=== PATIENT | male | born 1955 | race Caucasian/White ===

== ENCOUNTER 2020-08-18 13:48 | Emergency (ER) | payer OTHER, SELFPAY ==
[2020-08-18 14:00] VITALS: BP 150/73; PULSE 68; RESP 16; TEMP 36.2; O2SAT 98
--- NOTE | 2020-08-18 14:01 | ED.SKABFB ---
HPI - Skin/Abscess/Foreign Bdy General Chief complaint: Skin/Abscess/Foreign Body Stated complaint: RASH Time Seen by Provider: 08/18/20 14:02 Source: patient and RN notes reviewed Mode of arrival: ambulatory Limitations: no limitations History of Present Illness HPI narrative: 64-year-old male presents concern for pain and rash to the left-sided neck and shoulder area. Reports pain started earlier this week, rash appeared later. Reports he got a prescription for naproxen from his doctor which has not been helping. He also reports mild malaise. Denies fever MD complaint: rash Related Data Home Medications Medication Instructions Recorded Confirmed amiodarone 08/18/20 apixaban [Eliquis] mg 08/18/20 atorvastatin 08/18/20 carvedilol 08/18/20 insulin detemir U-100 [Levemir SUBCUT 08/18/20 U-100 Insulin] insulin glargine [Lantus U-100 SUBCUT 08/18/20 Insulin] linagliptin [Tradjenta] mg 08/18/20 lisinopril 08/18/20 metformin mg PO 08/18/20 naproxen 08/18/20 pantoprazole PO 08/18/20 ranolazine [Ranexa] mg PO 08/18/20 sertraline mg 08/18/20 spironolactone 08/18/20 Allergies Allergy/AdvReac Type Severity Reaction Status Date / Time CYCLOBENZAPRINE HCL Allergy Severe THROAT Uncoded 06/04/12 09:56 SWELLING Review of Systems Review of Systems: Narrative: CONSTITUTIONAL: Denies malaise, chills, sweats, or fever. EYES: Denies visual changes, redness, or discharge. ENT: Denies rhinorrhea, congestion, sinus pain, otalgia or sore throat. CARDIOVASCULAR: Denies chest pain, palpitations, or edema. RESPIRATORY: Denies cough or dyspnea. GASTROINTESTINAL: Denies abdominal pain, vomiting, diarrhea. Reports nausea SKIN: Reports rash on his left neck and shoulder area MUSCULOSKELETAL: Reports left-sided neck and shoulder pain NEUROLOGIC: Denies numbness, weakness, or headache. All systems reviewed & are unremarkable except as noted in HPI and below PMFSH Comments At time of signature, agree with nursing past medical, surgical, social and family history. There is no relevant family history pertinent to the presenting complaint Exam Narrative: Exam Narrative: GENERAL: Well-appearing, well-nourished, and in no acute distress. HEAD: Normocephalic, atraumatic. EYES: PERRLA, conjunctivae clear ENT: Nares clear. Mucous membranes moist. NECK: Supple. No lymphadenopathy. No jugular venous distension CHEST: No respiratory distress. Speaks in full sentences. HEART: Regular rate and rhythm. EXTREMITIES: Grossly normal range of motion. No edema. SKIN: Warm, dry. Zosteriform rash noted to the left-sided neck extending to the left upper chest NEURO: Alert and oriented x3. PSYCH: Normal mood and affect Course Course Emergency Course: Patient is aware of diagnosis, understands and agrees to treatment plan. Anticipatory guidance given. Patient agrees to follow-up as directed and is aware of reasons to seek care at the emergency department. Portions of this record may have been created with voice recognition software Vital Signs Vital signs: Vital Signs Temperature 97.2 F L 08/18/20 14:00 Pulse Rate 68 08/18/20 14:00 Respiratory Rate 16 08/18/20 14:00 Blood Pressure 150/73 H 08/18/20 14:00 Pulse Oximetry 98 08/18/20 14:00 Temperature 97.2 F L 08/18/20 14:00 Pulse Rate 68 08/18/20 14:00 Respiratory Rate 16 08/18/20 14:00 Blood Pressure 150/73 H 08/18/20 14:00 Pulse Oximetry 98 08/18/20 14:00 Reviewed. Patient has history of hypertension MDM - Skin/Abscess/Foreign Bdy MDM Narrative Medical decision making narrative: Does not appear at this time to be erythema multiforme, bullous, SJS, TEN; no evidence at this time to suggest RMSF, endocarditis or Lyme disease; patient looks well, nontoxic and is tolerating oral intake; no neurologic signs or symptoms; no headache, photophobia or neck pain; afebrile; appropriate for initial outpatient treatment; discussed the importance of
== END 2020-08-18 14:16 | disposition home or self-care (01) ==
PROVIDERS: Emergency Provider Nurse Practitioner; PCP Physician Assistant
DX: B02.9 Zoster without complications (principal); E78.00 Pure hypercholesterolemia, unspecified; I10 Essential (primary) hypertension; K21.9 Gastro-esophageal reflux disease without esophagitis; E11.9 Type 2 diabetes mellitus without complications
CPT/HCPCS: 99213; G0463